=== PATIENT | female | born 1995 | race Caucasian/White ===

== ENCOUNTER 2020-10-10 08:10 | Inpatient (IN) ==
[2020-10-10] MEDS ORDERED: Metoclopramide 10 MG/2 ML VIAL IVP PRN (08:26)
[2020-10-10] MEDS ORDERED: *HR* FentaNYL (PF) 100 MCG/2 ML VIAL IVP PRN (08:26)
[2020-10-10] MEDS ORDERED: miSOPROStoL 25 MCG TABLET PO PRN (08:26)
[2020-10-10] MEDS ORDERED: Ondansetron 4 MG/2 ML VIAL IVP PRN (08:26)
[2020-10-10] MEDS ORDERED: Famotidine 20 MG/2 ML VIAL IVP PRN (08:26)
[2020-10-10] MEDS ORDERED: Naloxone 0.4 MG/ML INJ IVP PRN (08:26)
[2020-10-10] MEDS ORDERED: Azithromycin 500 MG in 0.9 % Sodium Chloride 250 ML IVPB PRN (08:26)
[2020-10-10] MEDS ORDERED: Ringers Solution, Lactated 1,000 ML IVC SCH (08:30)
[2020-10-10] MEDS ORDERED: Oxytocin 20 units/ LR 1000 mL 20 UNIT/1,000 ML BAG IVC SCH ×2 (08:30→20:32)
[2020-10-10 09:26] LABS: Basophils % 0.3 %; Eosinophils # 0.1 K/mcL (0.0-0.6); Eosinophils % 1.1 %; Hematocrit 37.3 % (35.3-44.9); Hemoglobin 12.6 g/dL (11.5-15.4); Immature Granulocytes % 0.7 % (0-4); Lymphocytes # 2.6 K/mcL (0.6-4.6); Lymphocytes % 28.8 %; Mean Corpuscular HGB Conc 33.8 g/dL (31.6-35.5); Mean Corpuscular Hemoglobin 28.9 pg (28.0-33.3); Mean Corpuscular Volume 85.6 fL (83.0-100.0); Mean Platelet Volume 10.2 fL (9.4-12.4); Monocytes # 0.7 K/mcL (0.0-1.3); Monocytes % 7.4 %; Neutrophils # 5.5 K/mcL (1.6-8.9); Platelet Count 255 K/mcL (140-400); Red Blood Count 4.36 M/mcL (3.82-4.97); Red Cell Distribution Width 13.1 % (11.5-14.5); Segmented Neutrophils % 61.7 %; White Blood Count 8.9 K/mcL (4.3-11.1)
[2020-10-10 09:33] LABS: Amphetamine Screen,Urine Negative ng/mL (Cutoff=1000); Barbiturate Screen,Urine Negative ng/mL (Cutoff=200); Benzodiazepines Screen,Urine Negative ng/mL (Cutoff=200); Cannabinoid Screen,Urine Negative ng/mL (Cutoff = 50); Cocaine Screen,Urine Negative ng/mL (Cutoff= 300); Opiate Screen,Urine Negative ng/mL (Cutoff=300); Phencyclidine Screen,Urine Negative ng/mL (Cutoff=25)
[2020-10-10] MEDS ORDERED: Ropivacaine/PF 0.2% 20 ML VIAL EP ONE (14:44)
[2020-10-10] MEDS ORDERED: *HR* FentaNYL (PF) 100 MCG/2 ML VIAL EP ONE (14:44)
[2020-10-10] MEDS ORDERED: EPHEDrine 50 MG/ML VIAL IVP PRN (14:44)
[2020-10-10] MEDS ORDERED: Epidural Premix (fent/bupiv) 110 ML EP SCH (14:45)
[2020-10-10] MEDS ORDERED: Ropivacaine/PF 0.2% 20 ML VIAL ONE (14:52)
[2020-10-10] MEDS ORDERED: *HR* FentaNYL (PF) 100 MCG/2 ML VIAL ONE (14:52)
[2020-10-10] MEDS ORDERED: Acetaminophen 325 MG TABLET PO PRN (20:32)
[2020-10-10] MEDS ORDERED: Ibuprofen 600 MG TABLET PO PRN (20:32)
[2020-10-10] MEDS ORDERED: Lanolin 7 G OINT...G. TP PRN (20:32)
[2020-10-10] MEDS ORDERED: Measles/Mumps/Rubella Vacc 0.5 ML VIAL SQ PRN (20:32)
[2020-10-10] MEDS ORDERED: Rho Immune Globulin 1,500 UNIT SYRINGE IM PRN (20:32)
[2020-10-11] MEDS: Prenatal Vit/FA 1 EACH TABLET PO SCH (08:02)
[2020-10-11] MEDS ORDERED: Rho Immune Globulin 1,500 UNIT SYRINGE IM ONE (19:59)
[2020-10-12] MEDS: Prenatal Vit/FA 1 EACH TABLET PO SCH (08:21)
[2020-10-12 08:40] VITALS: BP 122/81
== END 2020-10-12 12:56 | disposition home or self-care (01) | DRG 560 ==
LOC: 1NENULAB → OBSVTOIN 08:10 → 1NENUOBS 22:13
PROVIDERS: ADMIT Obstetrics & Gynecology; ATTEND Obstetrics & Gynecology